=== PATIENT | female | born 1985 | race Caucasian/White ===

== ENCOUNTER → 2020-02-02 | Outpatient (CLI) | payer BC | LOC: M PLALAB 09:46 | PROVIDERS: ATTEND Advanced Practice Midwife | DX: Z12.4 Encounter for screening for malignant neoplasm of cervix (principal) | CPT/HCPCS: 87624; G0123 ==

== ENCOUNTER → 2020-02-24 | Outpatient (CLI) | payer BC ==
--- NOTE | 2020-02-24 17:43 | REP ---
BILATERAL MAMMOGRAM WITH 3D TOMOSYNTHESIS, BASELINE STUDY: Family history of breast cancer in maternal aunt, maternal grandmother, Lux lifetime risk of breast cancer 23.4%. MLO and CC views of bilateral breasts performed with implant displaced views obtained with 3D tomosynthesis. Routine views are also performed without the breast implants displaced. Bilateral breast implants are intact. There is moderate diffuse fibroglandular tissue present. An oval nodule is seen in the upper outer quadrant of the right breast which appears relatively smoothly marginated and well defined. I see no other evidence of mass or clustered microcalcifications. IMPRESSION: BIRADS 0: BI-RADS/ACR category 0 mammogram, Incomplete: Need additional imaging evaluation and/or prior mammograms for comparison. ACR 0 incomplete. Oval nodule in the upper outer quadrant of the right breast posteriorly is smoothly marginated and well defined and measures 9 x 4 mm. This could represent an intramammary lymph node. Recommend spot compression views and ultrasound to further evaluate. ACR 0 incomplete. This mammogram was interpreted with the aid of an FDA-approved computer-aided detection system. The patient states she/he had a clinical breast exam in 01/2020. The patient letter being requested is M0. Given the patient's elevated lifetime risk of breast cancer, recommend supplemental screening MRI of the breasts in 6 months.
== END ==
LOC: M WHC 14:48 → EDUNIT# 15:00
PROVIDERS: ATTEND Advanced Practice Midwife
DX: Z12.31 Encounter for screening mammogram for malignant neoplasm of breast (principal); Z80.3 Family history of malignant neoplasm of breast

== ENCOUNTER → 2020-05-18 | Outpatient (CLI) | payer BC ==
--- NOTE | 2020-06-12 15:25 | REP ---
DIAGNOSTIC MAMMOGRAM RIGHT BREAST AND RIGHT BREAST ULTRASOUND Multiple spot compression views and tomographic images of the right breast are performed to evaluate a nodular density in the upper outer quadrant of the right breast. A smoothly marginated nodule is confirmed in the upper outer quadrant about 6 cm from the nipple. Maximum diameter is 1 cm. Real-time sonographic evaluation of the right breast is performed in the upper outer quadrant. In this region, there is a lymph node identified with an echogenic hilum. This is about 6 cm from the nipple correlating with the location of the nodule on the mammogram. The lymph node measures 1.0 x 0.9 x 0.2 cm. IMPRESSION: ACR 2 benign. Nodule confirmed in the upper outer quadrant of the right breast. This represents a lymph node on ultrasound and is benign. Follow-up mammogram is recommended in one year. In addition, given the elevated lifetime risk of breast cancer 23.4%, supplemental screening MRI of the breast is recommended in six months. Patient letter 2. FABIENNED
== END ==
LOC: M WHC 12:47
PROVIDERS: ATTEND Advanced Practice Midwife
DX: R92.2 Inconclusive mammogram (principal)

== ENCOUNTER → 2022-12-24 | Outpatient (CLI) | payer BC ==
[2022-12-24 17:46] LABS: HEMOGLOBIN A1c 5.3 % (4.0-6.0)
[2022-12-24 17:48] LABS: BASO % 0.6 % (0.0-1.0); EOS # 0.1 10^3/uL (0.0-0.5); EOS % 1.8 % (0.0-3.0); HEMATOCRIT 38.8 % (36.0-47.0); HEMOGLOBIN 11.5 g/dl (12.0-15.5); LYMPH # 1.6 10^3/uL (1.5-5.0); LYMPH % 22.8 % (24.0-44.0); MEAN CORPUSCULAR HEMOGLOBIN 25.4 pg (27.0-33.0); MEAN CORPUSCULAR HGB CONC 29.6 g/dl (32.0-36.5); MEAN CORPUSCULAR VOLUME 85.7 fl (80.0-96.0); MONO # 0.5 10^3/uL (0.0-0.8); MONO % 6.6 % (2.0-8.0); NEUTROPHILS # 4.7 10^3/uL (1.5-8.5); NEUTROPHILS % 67.8 % (36.0-66.0); PLATELET COUNT, AUTOMATED 211 10^3/uL (150-450); RED BLOOD COUNT 4.53 10^6/uL (4.00-5.40); WHITE BLOOD COUNT 6.9 10^3/uL (4.0-10.0)
[2022-12-24 18:04] LABS: ALKALINE PHOSPHATASE 64 U/L (46-116); ALT/SGPT 50 U/L (7.0-40); AST/SGOT 29 U/L (<34); BILIRUBIN,TOTAL 0.6 MG/DL (0.3-1.2); BLOOD UREA NITROGEN 17 MG/DL (9-23); CALCIUM LEVEL 8.9 MG/DL (8.5-10.1); CARBON DIOXIDE LEVEL 31 MMOL/L (20-31); CHLORIDE LEVEL 104 MMOL/L (98-107); CREATININE FOR GFR 1.06 MG/DL (0.55-1.30); GLOMERULAR FILTRATION RATE > 60.0 (>60); GLUCOSE, FASTING 83 MG/DL (60-100); POTASSIUM SERUM 4.7 MMOL/L (3.5-5.1); PROGESTERONE 0.24 NG/ML; SODIUM LEVEL 139 MMOL/L (136-145); THYROID PEROXIDASE ANTIBODY < 28.0 U/ML (<60.0); TOTAL PROTEIN 7.1 G/DL (5.7-8.2)
[2022-12-24 18:05] LABS: FOLLICLE STIMULATING HORMONE 8.6 mIU/ML; FREE T4 1.14 NG/DL (0.89-1.76); LUTEINIZING HORMONE 14.4 mIU/ML; PROLACTIN 11.28 NG/ML
[2022-12-24 18:06] LABS: ESTRADIOL 249.6 PG/ML; THYROID STIMULATING HORMONE 0.729 uIU/ML (0.55-4.78)
[2022-12-30 03:07] LABS: 17 HYDROXY PROGESTERONE 52 ng/dL (.); DEHYDROEPIANDROSTERONE SULFATE 54.3 ug/dL (57.3-279.2); TESTOSTERONE FREE (DIRECT) < 0.2 pg/mL (0.0-4.2); THYROID BINDING GLOBULIN 17 ug/mL (13-39); VITAMIN D 1,25 DIHYDROXY 45.4 pg/mL (24.8-81.5)
== END ==
LOC: M PLALAB 16:51
PROVIDERS: ATTEND Nurse Practitioner Family
DX: N95.9 Unspecified menopausal and perimenopausal disorder (principal); R53.83 Other fatigue

== ENCOUNTER → 2022-12-24 | Outpatient (REF) | payer BC | LOC: M PLALAB 17:19 | PROVIDERS: ATTEND Nurse Practitioner Family | DX: Z12.4 Encounter for screening for malignant neoplasm of cervix (principal) | CPT/HCPCS: 87624; G0123 ==

== ENCOUNTER → 2023-01-05 | Outpatient (REF) | payer BC | LOC: M PLALAB 12:24 | PROVIDERS: ATTEND Nurse Practitioner Family | DX: R53.83 Other fatigue (principal); R79.9 Abnormal finding of blood chemistry, unspecified; Z53.9 Procedure and treatment not carried out, unspecified reason ==